=== PATIENT | female | born 1985 | race Caucasian/White ===

== ENCOUNTER → 2019-03-30 10:22 | Outpatient (CLI) | payer OTHER, SELFPAY ==
--- NOTE | 2019-03-30 10:29 | RAD_ITS ---
STUDY: X-RAY - LUMBAR SPINE REASON FOR EXAM: Female, 33 years old. Low back pain radiating to the left leg. TECHNIQUE: 5 view(s) of the lumbar spine were obtained. COMPARISON: None FINDINGS: Normal lumbar lordosis. There is no substantial scoliosis. There is a normal alignment of the vertebrae. Normal vertebral bodies and endplates. Normal disc space heights. There is no demonstrated fracture. There is no demonstrated spondylolysis of the pars interarticulares. The soft tissue structures are unremarkable. RAD/L/S Spine Min 4 Views IMPRESSION: Normal x-ray examination of the lumbar spine. Electronically Signed: Sandra Perez MD at 1:09 EST , Service support ,
== END ==
PROVIDERS: Family Provider Internal Medicine; PCP Internal Medicine; Referring Provider Nurse Practitioner; Visit Provider Nurse Practitioner
DX: M54.30 Sciatica, unspecified side (principal)
CPT/HCPCS: 72110

== ENCOUNTER 2019-05-28 16:00 | Outpatient (RCR) | payer OTHER, SELFPAY ==
--- NOTE | 2019-03-30 17:04 | HP.PTEVAL ---
Patient's Visit Information HUSAM BOWLING is a 33 year old F referred to Physical Therapy by TOI Alvarez with a diagnosis of SCIATICA. Date of Evaluation: 03/30/19 Physical Therapist: Cindy De Jesus PT, Cert MDT - Visit Plan Frequency: 2-3x /Week Duration: 4-6 Weeks Plan: MODALITIES NEEDED. POSTURE CORRECTION/STRENGTHENING, INSTRUCTION IN APPROPRIATE BODY MECHANICS AND ACTIVITY MODIFICATIONS. DLS STARTING WITH A NEUTRAL SPINE PROGRESSING ROM TOLERATED. ADITYA LE ROM, STRETCHING AND STRENGTHENING. HEP INSTRUCTION. 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 TODAY IS THE FIRST DAY OF WORK MISSED. WORKS TUE THROUGH TUESDAY. Disability: NO. Present symptoms: LOW BACK PAIN LEFT > RIGHT. ADITYA HIP PAIN. LEFT BUTTOCK PAIN, LEFT THIGH PAIN, LEFT CALF PAIN. WHOLE LEFT LEG FEELS NUMB TO THE TOES. Present since: ABOUT 6 MONTHS AGO. Pain Scale: WORST 9/10, LEAST 1/10. Currently: /10. Commenced as a result of: RELATES PAIN TO LIFTING 1 YEAR OLD. Symptoms at onset: LOW BACK PAIN. Worse: BENDING, STRAIGHTENING LEGS IN SITTING, SOMETIMES WALKING, SPORATIC, STAYING IN ONE POSITION, LIFTING, BUMPS DURING CAR RIDE. Better: LYING DOWN, FREQUENT CHANGE OF POSITION, STANDING UP AND NOT PUTTING ANY PRESSURE ON LLE. Disturbed sleep: YES. Previous history/Previous treatment: UNREMARKABLE. Coughing/sneezing/straining: NEGATIVE NOW. Gait: PAINFUL. Difficulty initiating urinatin: NO. Accidents: NO. Unexplained weight loss: NO. Imaging: BACK X-RAY TODAY: RESULTS PENDING. PMH: UNREMARKABLE. OTHER: SPORATICALLY HAS TRIED 10 MINUTE AB WORK OUT WITH CRUNCHES, KEAGLES, BICYCLES AND OBLIQUES - ABOUT 2 DAYS AFTER WAS REALLY SORE IN HIPS. CORE FELT A LITTLE STRONGER AND BACK PAIN WAS BETTER BUT THEN DID STRETCHES (PRONE PRESS UPS, CHILD POSE, SEATED TWISTING) AND FELT SHOOTINIG PAINS DOWN LEG LATER THAT DAY. THINKS SHE OVER-DID THE STRETCHING. STARTED STEROIDS TODAY. ALSO TAKING ALEVE. TORADOL SHOT TODAY TOO. - Objective Sitting/Standing Posture: POOR. DECREASED WT BEARING LEFT LE. PERIPHERALIZES PAIN TO STAND. Lordosis: REDUCED. Lateral shift: NO. Relevant shift: N/A. Active Correction of posture: WORSE. Other Observations: INDEP VERY SLOW AND ANTALGIC GAIT AND TRANSFERS. DECREASED LLE WEIGHT BEARING IN STANDING. LIMP ON LLE. Motor deficit: ADITYA LE'S 5/5 WITH MMT'ING EXCEPT RIGHT HIP 4/5 AND LEFT HIP 4-/5. Sensory deficit: NO. ROM deficit: ADITYA LE'S WFL EXCEPT LLE HS'S. Reflexes: 2/3 ADITYA LE'S. Dural Signs: POSITIVE LLE. Lumbar mvmt loss: flex - MOD TO GABRIELA. ext - GABRIELA. R SG - MOD. L SG - MOD. INCREASED LLE SX'S WITH LUMBAR ROM TESTING ALL PLANES IN STANDING BUT ESPECIALLY EXT AND LEFT SG. Core strength: POOR. Palpation: NO ACUTE TENDERNESS WITH PALPATION OF THE THORACIC OR LUMBAR SPINE. TENDER IN THE LEFT BUTTOCK AREA. - Goals Goal 1:: DECREASE C/O BACK AND LLE SX'S. Goal Time Frame: 4-6 Weeks Goal 2:: IMPROVE PERSONAL CARE, LIFTING, WALKING, SITTING, STANDING, SLEEP, SOCIAL LIFE, TRAVEL, AND HOMEMAKING/WORK FUNCTION. Goal Time Frame: 4-6 Weeks Goal 3:: INSTRUCT IN PROPHYLAXIS Goal Time Frame: 4-6 Weeks - Anticipated Interventions Patient/Client Instruction: Educate patient on: Condition, Plan of Care, Risk Factors, Benefits of Fitness Program For the Purpose of:: To improve self management Therapeutic Exercise to Include: Strength training, Body mechanics, Postural training, Flexibilty training, Dynamic Lumbar Stabilization Comment: POOL IS NOT COVERED For the Purpose of:: To decrease pain, To increase ROM, To improve muscle performance and motor function, To increase tolerance to activity/condition/position, To improve ability of physical actions for home/community/work/leisure Thank you for the opportunity to evaluate your patient. For Medicare and Medicare HMO plans, please review the plan of care and approve it. It will need to be FAXED BACK to us at [phone] for Medicare purposes. For Medicare only, by signing this I certify the plan of care. Please let me know if there are questions or concerns regarding this plan of care. Physician Signature: Date:
--- NOTE | 2019-05-29 13:48 | HP.PTDCSUM_ITS ---
HP - PT D/C Summary It has been my pleasure to treat HUSAM BOWLING under orders from Kimberly Batres, SHANTELLE-C, for the diagnosis of SCIATICA for a total of 19 visit(s). Discharge Date: Please see the following information for a summary of their discharge status. - Subjective Subjective: PATIENT REPORTS SHE HAS BEEN FEELING CLOSER TO 95% BETTER THE LAST FEW DAYS. STILL GETS SHOOTING SX'S DOWN LLE RANDOMLY. - Pain LOW BACK Pain Intensity (Out of 10): 0 THIGH Pain Intensity (Out of 10): 0 CALF Pain Intensity (Out of 10): 0 FOOT Pain Intensity (Out of 10): 0 - Overall Improvement % Improvement: 80 - Objective Objective/Function: PATIENT WAS SEEN TODAY FOR RE-ASSESSMENT OF PROGRESS TOWARD THE SET PT GOALS AND THE NEED FOR FURTHER PHYSICAL THERAPY VS READINESS FOR DISCHARGE. UPON EXAM TODAY PATIENT CONTINUES TO HAVE SOME LUMBAR MVMT LOSS: FLEX - MIN, EXT - MIN, RIGHT SG - MIN, LEFT SG - MIN. HER GAIT HAS NORMALIZED AND ADITYA LE STRENGTH IS 5/5. SHE HAS HAD 19 PHYSICAL THERPAPY VISITS AND IS INDEP WITH A HEP BUT HER LLE SX'S HAVE NOT COMPLETELY RESOLVED. THIS PT RECOMMENDS PH YSICIAN RE-CHECK DUE TO LE SX'S NOT COMPLETELY RESOLVED. PATIENT IS AGREEABLE. - Goals Goal 1:: DECREASE C/O BACK AND LLE SX'S. Goal 2:: IMPROVE PERSONAL CARE, LIFTING, WALKING, SITTING, STANDING, SLEEP, SOCIAL LIFE, TRAVEL, AND HOMEMAKING/WORK FUNCTION. Goal 3:: INSTRUCT IN PROPHYLAXIS - Plan Plan: D/C TO INDEP EX AND FOLLOW UP WITH DR. ROMERO. - D/C Information If there are questions or concerns regarding this patient's physical therapy, please feel free to call me at [phone]. Thank you for the referral of this patient. Sincerely, Cindy De Jesus, PT, Cert MDT
== END 2019-05-28 19:00 | disposition home or self-care (01) ==
LOC: PT 16:00
PROVIDERS: Family Provider Internal Medicine; PCP Internal Medicine; Referring Provider Nurse Practitioner; Visit Provider Nurse Practitioner
DX: M54.30 Sciatica, unspecified side (principal)
CPT/HCPCS: 97014; 97110; 97162; 97164; 97530; G0283

== ENCOUNTER 2024-02-13 09:37 | Observation (INO) | payer OTHER, SELFPAY ==
[2024-02-13] VITALS (7 sets, daily range): BP systolic 115–133; BP diastolic 65–86; PULSE 78–130; RESP 16–20; TEMP 36.7–37.2; O2SAT 97–100; BMI 30.5
--- NOTE | 2024-02-13 09:56 | EKG12_ITS ---
Test Reason : Blood Pressure : / mmHG Vent. Rate : 100 BPM Atrial Rate : 100 BPM P-R Int : 126 ms QRS Dur : 078 ms QT Int : 332 ms P-R-T Axes : 081 048 -05 degrees QTc Int : 428 ms Normal sinus rhythm Normal ECG Confirmed by MARISOL RENTERIA, LUIS FELIPE ([id number]), newspaper editor managing YAKOV SANTIAGO ([id number]) on 02/14/2024 8:44:30 AM Referred By: AMY Confirmed By:LUIS FELIPE DAMON MD
--- NOTE | 2024-02-13 10:21 | EX.ED.DYSGE1 ---
HPI History of Present Illness Chief Complaint: Abd Pain Narrative Narrative: Patient is a 38-year-old female with no known significant past medical history who presents to the emergency department with a chief complaint of abdominal pain. States that for about 3 days now she has noted that she had some right upper quadrant pain. 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 She had that things would get better however notes that she is unable to sleep at night secondary to the pain. She denies any previous abdominal surgeries denies any history of kidney stones. Patient denies any recent travel history. Denies any history of blood clots. States that she is on control. PFSH PFSH Home Medications ?Medication ?Instructions ?Recorded ?Last Taken ?Type L norgest/E estradiol-E estrad 1 tab PO DAILY 02/13/24 02/13/24 History 0.15 mg-30 mcg (84)/10 mcg(7) tabs,3mos multivitamin (Daily Multi-Vitamin 1 tab PO DAILY 02/13/24 02/13/24 History tablet) Allergy/AdvReac Type Severity Reaction Status Date / Time No Known Allergies Allergy Verified 02/13/24 09:41 Social History Smoking Status: Never smoker ROS ROS ED ROS Narrative Constitutional: Denies any fevers, chills, headaches, lightness, dizziness Eyes: Denies change in vision double vision blurry vision Cardiovascular: Denies chest pain or palpitations Respiratory: Denies coughing wheezing shortness of breath Abdomen: Complains of abdominal pain as noted above nausea denies vomiting diarrhea denies dark tarry stools : Denies any pain phonation, hematuria, polyuria Neurological: Denies any numbness, weakness, tingling Musculoskeletal: Denies back pain Skin: Denies rashes or lesions EXAM Physical Exam Narrative Exam Narrative: General: Patient lying in bed rest comfortably did not appear to be in acute distress Head: Atraumatic, normocephalic Eyes: PERRL bilateral, EOMI bilateral, no conjunctival injection noted Neck: Soft, supple, trachea midline Cardiovascular: Regular rate and rhythm no murmurs gallops rubs noted Respiratory: Clear to auscultation bilaterally no rales rhonchi or wheezes noted Abdomen: Soft, nondistended, nontender to palpation no rebound or guarding on exam, bowel sounds present x 4, negative Borges sign Extremities: +5/5 strength noted in the bilateral lower extremities, no pedal edema on exam Neurological: Patient following commands knew that she was at [facility] year is 2023 Skin: Warm, dry, intact Const Vital Signs: 02/13/24 09:38 02/13/24 11:37 Temperature 98.9 F Temperature Source Oral Pulse Rate 130 H 78 Respiratory Rate 18 18 Blood Pressure 133/86 H 115/65 Blood Pressure Mean 101 81 Pulse Ox 97 97 Oxygen Delivery Method Room Air MDM MDM MDM Narrative Medical decision making narrative: Patient is a 38-year-old female who presents to the emergency department chief complaint of right upper quadrant abdominal pain. On the differential diagnose includes but not limited to cholecystitis, choledocholithiasis, viral gastroenteritis, pancreatitis, urolithiasis. Once workup is obtained reviewed she will be reevaluated. Patient be given IV fluids. She does states that she does not anything for pain at this point time. Patient CBC reviewed and was significant for leukocytosis of 11,000, hemoglobin was 13.3, platelet count normal at 281. Patient sodium normal 138, potassium normal 3.5, creatinine normal at 0.94. Patient's AST and ALT were 30 and 58 respectively, total bilirubin normal at 0.70. Patient lipase normal at 30, urinalysis did not reveal any evidence of infection and test was negative. Patient CT abdomen pelvis with IV contrast was reviewed and was significant for a right posterior portal venous thrombosis in the posterior aspect of the right portal venous bifurcation extending to the right posterior hepatic lobe. At this point time we will discuss case with gastroenterology Dr. Martins. Discussed case with Dr. Martins and he states that the patient can be admitted here under the medicine service and be further evaluated at that point time. Called and discussed case with hospitalist Dr. Diaz who accept patient for admission. He is recommending Lovenox which was ordered. Patient was notified and significant other bedside with all question concerns answered bedside. Lab Data Labs: Laboratory Results - last 24 hr 02/13/24 02/13/24 10:18 10:35 WBC 11.9 H RBC 4.77 Hgb 13.3 Hct 41.3 MCV 86.6 MCH 27.9 MCHC 32.2 RDW Std Deviation 39.9 RDW Coeff of Vandana 12.9 Plt Count 281 MPV 9.6 Immature Gran % (Auto) 0.300 Neut % (Auto) 76.5 H Lymph % (Auto) 12.8 L Henderson % (Auto) 9.6 Eos % (Auto) 0.5 Baso % (Auto) 0.3 Absolute Neuts (auto) 9.1 H Absolute Lymphs (auto) 1.53 Nucleated RBC % 0 Sodium 138 Potassium 3.5 Chloride 108 H Carbon Dioxide 24.0 Anion Gap 6 BUN 6 L Creatinine 0.94 Estim Creat Clear Calc 90.85 Est GFR (MDRD) Af Amer 85 Est GFR (MDRD) Non-Af 70 BUN/Creatinine Ratio 6.4 L Glucose 115 H Calcium 10.1 Total Bilirubin 0.70 AST 30 ALT 58 H Alkaline Phosphatase 54 Total Protein 7.9 Albumin 3.3 Globulin 4.6 H Albumin/Globulin Ratio 0.7 L Lipase 30 Urine Color Straw Urine Clarity Clear Urine pH 7.0 Ur Specific [place] 1.005 Urine Protein Negative Urine Glucose (UA) Normal Urine Ketones Negative Urine Occult Blood 25 H Urine Nitrite Negative Urine Bilirubin Negative Urine Urobilinogen Normal Ur Leukocyte Esterase 25 H Urine RBC 0 SEEN Urine WBC 0 SEEN Ur Squamous Epith Cells 0-5 SEEN Urine Bacteria 0 SEEN Urine Mucus 0 SEEN Urine Test Negative Radiography Diagnostic Testing: Clinical Impression(s) from Imaging Studies Abdomen/Pelvis CT 02/13/24 10:48 IMPRESSION: Right posterior portal venous thrombosis in the posterior aspect of the right portal venous bifurcation extending to the right posterior hepatic lobe. Electronically Signed: Gomez Penaloza MD at 12:12 EDT Reading Location ID and State: [facility] / [place] , Service support , ADDENDUM: 02/13/24 1226 IMPRESSION: Right posterior portal venous thrombosis in the posterior aspect of the right portal venous bifurcation extending to the right posterior hepatic lobe. N.B. : The above Results were Read Back by Gomez Penaloza MD to Terrance Amaral DO, and understanding confirmed on 02/13/2024 12:19:59 (ET). Electronically Signed: Gomez Penaloza MD at 12:12 EDT , Discharge Plan Triage Chief Complaint: Abd Pain ED Provider: Terrance Amaral Dx/Rx/DC Orders Clinical Impression: Portal vein thrombosis Prescriptions: No Action L norgest/e.estradiol-e.estrad 0.15 mg-30 mcg (84)/10 mcg (7) tablets,dose pack,3 month 1 tab PO DAILY multivitamin [Daily Multi-Vitamin] Tablet 1 tab PO DAILY Primary Care Provider: Ann Marie Dietrich Referrals: Ann Marie Dietrich DO [Primary Care Provider] - Print Language: Maltese
[2024-02-13] MEDS: 0.9% Normal Saline (1000mL) 1,000 ML 999 ML IV (10:23)
[2024-02-13 10:34] LABS: Bacteria 0 SEEN /hpf (None Seen); Color, Urine Straw (Yellow); Glucose, Dipstick Normal (Normal); Ketone-Dipstick Negative (Negative); Leukocyte Esterase-Dipstick 25 /ul (Negative); Mucous, Urine 0 SEEN /hpf (<or=2+); Nitrite-Dipstick Negative (Negative); Occult Blood-Urine 25 /ul (Negative); Protein-Dipstick Negative (Negative); Red Blood Cells-Urine 0 SEEN /hpf (0-5); Specific Gravity, Urine 1.005 (1.002-1.030); Urine Bilirubin Dipstick Negative (Negative); Urine Clarity Clear (Clear); Urine Urobilinogen Normal (Normal); White Blood Cells 0 SEEN /hpf (0-5)
[2024-02-13 10:41] LABS: Absolute Lymphocyte Count 1.53 X10^3/uL (0.83-4.51); Absolute Neutrophil Count 9.1 X10^3/uL (2.0-7.7); Basophil# 0.04 X10^3/uL; Basophil% 0.3 % (0-1); Eosinophil# 0.06 X10^3/uL; Eosinophils% 0.5 % (0-5); Hematocrit 41.3 % (37-47); Hemoglobin 13.3 g/dL (12.0-15.0); Lymphocyte # 1.53 X10^3/ul (0.83-4.51); Lymphocyte % 12.8 % (19-41); Mean Corp Hgb Conc 32.2 g/dL (32-36); Mean Corpuscular Hgb 27.9 pg (27.0-32.0); Mean Corpuscular Volume 86.6 fL (81-99); Mean Platelet Vol. 9.6 fl (6.2-12.0); Monocyte# 1.14 X10^3/uL; Monocyte% 9.6 % (0-10); NRBC Flagged by Analyzer 0 % (0-5); Neutrophil % 76.5 % (47-70); Platelet Count 281 K/mm3 (150-450); RBC Distribution Width CV 12.9 % (11.6-14.6); RBC Distribution Width SD 39.9 fl (35.1-43.9); Red Blood Count 4.77 M/mm3 (4.2-5.4); White Blood Count 11.9 K/mm3 (4.4-11.0)
[2024-02-13 10:46] LABS: Internal QC Validated? YES +Cl - CLEAR BKGD; Pregnancy, Urine Negative Negative; Squamous Epithelial Cells - UA 0-5 SEEN /hpf (5-10)
--- NOTE | 2024-02-13 10:48 | CT_ITS ---
We are attempting to reach an attending provider to discuss findings. An addendum with communication details will be sent when the communication is complete. EXAM: CT ABDOMEN AND PELVIS WITH INTRAVENOUS CONTRAST CLINICAL INDICATION: RUQ pain TECHNIQUE: Helically acquired images were obtained of the abdomen and pelvis with intravenous contrast. This CT exam was performed using one or more of the following dose reduction techniques: automated exposure control, adjustment of the mA and/or kV according to patient size, and/or use of iterative reconstruction technique. CONTRAST: IV 100mL Isovue-300 RADIATION DOSE: CTDIvol = 13.66 mGy, DLP = 1015.36 mGy-cm COMPARISON: No relevant prior studies available. FINDINGS: LOWER THORAX: Unremarkable. Lung bases are clear. No cardiomegaly. No significant pericardial effusion. ABDOMEN: LIVER: Unremarkable. Homogeneous. No focal mass. GALLBLADDER AND BILE DUCTS: Unremarkable. No calcified gallstones. No gallbladder distention or wall edema. No intra- or extrahepatic biliary ductal dilation. PANCREAS: Unremarkable. No focal cystic or solid mass. SPLEEN: Unremarkable. Normal size without focal cystic or solid mass. ADRENALS: Unremarkable. No nodules. KIDNEYS AND URETERS: Unremarkable. Normal renal size and position. No hydronephrosis. STOMACH AND BOWEL: Unremarkable. No stomach or bowel distention. No focal inflammatory change. PELVIS: APPENDIX: Normal. BLADDER: Unremarkable. REPRODUCTIVE: Unremarkable as visualized. No mass. ABDOMEN and PELVIS: INTRAPERITONEAL SPACE: Unremarkable. No ascites or other fluid collection. No free air. BONES/JOINTS: Unremarkable. No suspicious lytic or blastic abnormality. SOFT TISSUES: Unremarkable. No discrete abdominal or pelvic wall hernia. VASCULATURE: Positive for intraluminal thrombus in the posterior aspect of the right main portal venous bifurcation extending to the right posterior hepatic lobe. No thrombus in the main portal vein and left portal vein. No thrombosis of the splenoportal confluence and SMV. No thrombus in the hepatic veins. Abdominal aorta is non-dilated. LYMPH NODES: Unremarkable. No enlarged lymph nodes. CT/Abdomen/Pelvis W IV Cont ONLY IMPRESSION: Right posterior portal venous thrombosis in the posterior aspect of the right portal venous bifurcation extending to the right posterior hepatic lobe. Electronically Signed: Gomez Penaloza MD at 12:12 EDT ,
[2024-02-13 11:01] LABS: ALB/GLOB Ratio 0.7 RATIO (0.9-2.4); AST(SGOT) 30 U/L (15-37); Alanine Aminotransfer ALT/SGPT 58 U/L (13-56); Albumin, Serum 3.3 g/dL (3.2-5.0); Alkaline Phosphatase 54 U/L (45-117); Anion Gap 6 (5-15); BUN 6 mg/dL (7-18); BUN/Creat Ratio 6.4 RATIO (10-20); Calcium,Total 10.1 mg/dL (8.5-10.1); Chloride 108 mmol/L (98-107); Creatinine, Serum 0.94 mg/dL (0.55-1.02); EST Glomerular Filtration Rate 70 mL/min (>60); Est Glom Filt Rate - Afr Amer 85 mL/min (>60); Estimated Creatinine Clearance 90.85 ml/min; Globulin 4.6 g/dL (2.2-4.2); Glucose 115 mg/dL (74-106); Lipase 30 U/L (13-75); Potassium 3.5 mmol/L (3.5-5.1); Protein, Total 7.9 g/dL (6.4-8.2); Sodium Level 138 mmol/L (136-145)
--- NOTE | 2024-02-13 13:24 | HP.PCM.HOS_ITS ---
HPI - General General Date of Admission: 02/13/24 Date of Service: 02/13/24 Chief Complaint: RUQ abdominal pain HPI Narrative HUSAM BOWLING, is a 38 F who presented to [facility] ED on 02/13/2024 with 3-day history of right upper quadrant abdominal pain. CT abdomen pelvis was positive for a portal vein thrombosis. Scan showed an intraluminal thrombus in the posterior aspect of the right main portal venous bifurcation extending to the right posterior hepatic lobe. There otherwise was no liver disease or gallbladder disease noted on the scan and no other concerning findings. Patient started combo control pills about 3 months ago. She was given a dose of subcu Lovenox in the ED and given her ongoing pain, hospitalist was contacted for admission. I saw the patient at bedside in the ED, was present. Patient was sitting up comfortably in bed, conversing normally, no acute distress. She stated that her pain is fairly well-controlled at rest but is worse with movement. She does report some pain to palpation. She has not been eating or drinking as much over the past few days due to the pain. Patient has no prior history of any blood clots. She has no significant family history of blood clots. She is otherwise healthy and not on any other medications. She is not a smoker. She has no other acute concerns at this time. [facility] Medical History Non-smoker Home Medications ?Medication ?Instructions ?Recorded ?Last Taken ?Type L norgest/E estradiol-E estrad 1 tab PO DAILY 02/13/24 02/13/24 History 0.15 mg-30 mcg (84)/10 mcg(7) tabs,3mos multivitamin (Daily Multi-Vitamin 1 tab PO DAILY 02/13/24 02/13/24 History tablet) Allergy/AdvReac Type Severity Reaction Status Date / Time No Known Allergies Allergy Verified 02/13/24 09:41 Social History Smoking Status: Never smoker ROS Constitutional Constitutional: Denies chills, fatigue, fever(s) or weakness Cardiovascular Cardiovascular: Denies chest pain Respiratory/Chest Respiratory/Chest: Denies shortness of breath at rest or shortness of breath with exertion Gastrointestinal Gastrointestinal: Reports abdominal pain and nausea; Denies constipation, diarrhea or vomiting Musculoskeletal Musculoskeletal: Denies back pain Vital Signs Vital Signs Vital Signs: 02/13/24 09:38 02/13/24 11:37 Temperature 98.9 F Temperature Source Oral Pulse Rate 130 H 78 Respiratory Rate 18 18 Blood Pressure 133/86 H 115/65 Blood Pressure Mean 101 81 Pulse Ox 97 97 Oxygen Delivery Method Room Air Weight Weight: 88.451 kg Body Mass Index (BMI) 30.5 Physical Exam Const alert, oriented x3, no apparent distress, healthy appearing and well nourished Constitutional Narrative: Pleasant middle-age female, obese, sitting up comfortably in bed, conversing normally, in no acute distress. General Appearance: cooperative, comfortable, well kempt and well developed HEENT normocephalic, head/scalp atraumatic, hearing grossly normal bilaterally, nasal mucous membranes and turbinates normal and moist oral mucous membranes Eyes PERRL, EOMs intact bilaterally and conjunctivae normal Neck full ROM Chest inspection of chest normal Resp normal respiratory effort, normal air movement, no use of accessory muscles and clear to auscultation bilaterally Cardio regular rate, regular rhythm, no murmurs and peripheral pulses 2+ throughout GI GI Narrative: Mild tenderness to palpation noted in the right upper quadrant wrapping around to the right lateral abdominal area. Abdomen otherwise soft and nondistended. Normal bowel sounds. Back/Spine normal ROM Extremity normal to inspection, full ROM and no pedal edema Skin no rashes or lesions noted Neuro moves all extremities and no focal motor deficits Speech: speech normal Psych mental status grossly normal Results Lab / Micro Data 02/13/24 10:35 02/13/24 10:35 Labs: Laboratory Results - last 24 hr 02/13/24 10:18: Urine Color Straw, Urine Clarity Clear, Urine pH 7.0, Ur Specific [place] 1.005, Urine Protein Negative, Urine Glucose (UA) Normal, Urine Ketones Negative, Urine Occult Blood 25 H, Urine Nitrite Negative, Urine Bilirubin Negative, Urine Urobilinogen Normal, Ur Leukocyte Esterase 25 H, Urine RBC 0 SEEN, Urine WBC 0 SEEN, Ur Squamous Epith Cells 0-5 SEEN, Urine Bacteria 0 SEEN, Urine Mucus 0 SEEN, Urine Test Negative 02/13/24 10:35: WBC 11.9 H, RBC 4.77, Hgb 13.3, Hct 41.3, MCV 86.6, MCH 27.9, MCHC 32.2, RDW Std Deviation 39.9, RDW Coeff of Vandana 12.9, Plt Count 281, MPV 9.6, Immature Gran % (Auto) 0.300, Neut % (Auto) 76.5 H, Lymph % (Auto) 12.8 L, Pike % (Auto) 9.6, Eos % (Auto) 0.5, Baso % (Auto) 0.3, Absolute Neuts (auto) 9.1 H, Absolute Lymphs (auto) 1.53, Nucleated RBC % 0, Sodium 138, Potassium 3.5, Chloride 108 H, Carbon Dioxide 24.0, Anion Gap 6, BUN 6 L, Creatinine 0.94, Estim Creat Clear Calc 90.85, Est GFR (MDRD) Af Amer 85, Est GFR (MDRD) Non-Af 70, BUN/Creatinine Ratio 6.4 L, Glucose 115 H, Calcium 10.1, Total Bilirubin 0.70, AST 30, ALT 58 H, Alkaline Phosphatase 54, Total Protein 7.9, Albumin 3.3, Globulin 4.6 H, Albumin/Globulin Ratio 0.7 L, Lipase 30 Imaging Radiology Impression Abdomen/Pelvis CT 02/13/24 10:48 IMPRESSION: Right posterior portal venous thrombosis in the posterior aspect of the right portal venous bifurcation extending to the right posterior hepatic lobe. Electronically Signed: Gomez Penaloza MD at 12:12 EDT , ADDENDUM: 02/13/24 1226 IMPRESSION: Right posterior portal venous thrombosis in the posterior aspect of the right portal venous bifurcation extending to the right posterior hepatic lobe. N.B. : The above Results were Read Back by Gomez Penaloza MD to Terrance Amaral DO, and understanding confirmed on 02/13/2024 12:19:59 (ET). Electronically Signed: Gomez Penaloza MD at 12:12 EDT , Assessment & Plan Assessment/Plan (1) Portal vein thrombosis: PLAN: Plan Patient is a 38-year-old female who presented to [facility] ED on 02/13/2024 with 3-day history of right upper quadrant abdominal pain. 1. Portal vein thrombosis ? Admit under observation status to [facility]. GI consulted. Recently started combo control is the clear trigger for clotting for this patient. No liver disease or other intermittent abdominal pathology noted on CT scan. No history of prior clots and no family history of clotting disorder. Will treat with therapeutic Lovenox for now. If patient's pain is improved by tomorrow, should be okay to transition to a DOAC in preparation for discharge. Will need 6 months of anticoagulation on discharge. Will defer to GI on if further imaging or lab workup is needed. Can also consider outpatient hematology referral for anticoagulation workup if needed. 2. control ? Patient started estrogen-progesterone combo pill 3 months prior to this admission for perimenopausal symptoms. Follows with Dr. Gomez with [facility]. 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 3. Obesity ? BMI 30 on admit. Encouraged lifestyle modifications. Complicates hospital course, care and prognosis. DVT prophylaxis: Not indicated, on therapeutic Lovenox CODE STATUS: Full code, verified Expected disposition: Home, 1 to 2 days Total clinical time spent by myself addressing the patient's medical issues, reviewing all the data, and collaborating with patient's care team: 55 minutes. Charges/Coding Visit Charges Inpatient E&M: 98755 Init Hosp L2
[2024-02-13] MEDS: Enoxaparin 100 MG/ML Syringe 90 MG SC ×2 (14:24→21:52)
--- NOTE | 2024-02-13 15:06 | CASEMGMT ---
Care Management Face to Face with patient for initial transition planning/care coordination assessment.? This speech writer introduced self and role at [facility]. Patient sitting in bed , alert and oriented. Patient in room and participated in assessment with patient consent.? Patient willing to participate in assessment and is able to answer all questions appropriately.? Care providers, pharmacy, and demographics verified. Admitting Diagnosis: ?rt upper abd pain Other diagnosis history: n/a PCP: ?Dr. Dietrich Specialists: n/a Preferred Pharmacy: ?[facility] in [place] Insurance: ?[employer] Prescription Benefit:? [employer] Living Will/HPOA: ?Does not have any advanced directives at this time, SW educated that we could assist in completing while she was at the hospital.? Patient declined at this time but did want paperwork to review.? Information given on Living Will and Health Care Power of Motion Picture Equipment Supervisor. LNOK: ?Cj Mosesamer, Living Arrangements: ??Patient lives at home with and two children.? Home has two stairs to enter, multiple steps upstairs.? Master suite on first floor. Transportation: ?Both patient and drive and have reliable transportation. DME/HHC: ?No preferences for DME or HHC at this time.? Educated should services be necessary that SW/CM staff can assist in providing choices.? Patient goals: Patient wishes to discharge home, denies need for home health or DME services at this time.? Patient states he has no further needs or concerns at this time. CM to follow for discharge planning needs that may arise. Ammy Hunt, MARKETING PROPOSAL SPECIALIST, TIME BUYER
--- NOTE | 2024-02-13 18:45 | CON.PCM.GI_ITS ---
HPI Consult Data Date of Consult: 02/13/24 HPI Narrative Reason for Consultation: Portal vein thrombosis HPI Narrative: HUSAM BOWLING, is a 38 F who presented to [facility] ED on 02/13/2024 with 3-day history of right upper quadrant abdominal pain. 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 She was recently started on control because she was perimenopausal. She had no other symptoms other than abdominal pain that caused her to come to the hospital. CT abdomen pelvis was positive for a portal vein thrombosis. Scan showed an intraluminal thrombus in the posterior aspect of the right main portal venous bifurcation extending to the right posterior hepatic lobe. There otherwise was no liver disease or gallbladder disease noted on the scan and no other concerning findings. Patient started combo control pills about 3 months ago. She was given a dose of Lovenox in the ED and given her ongoing pain, hospitalist was contacted for admission. She is not a smokerAnd she has no family history of blood clotting disorders. She has no other acute concerns at this time. [facility] Medical History Non-smoker Home Medications ?Medication ?Instructions ?Recorded ?Last Taken ?Type L norgest/E estradiol-E estrad 1 tab PO DAILY 02/13/24 02/13/24 History 0.15 mg-30 mcg (84)/10 mcg(7) tabs,3mos multivitamin (Daily Multi-Vitamin 1 tab PO DAILY 02/13/24 02/13/24 History tablet) Allergy/AdvReac Type Severity Reaction Status Date / Time No Known Allergies Allergy Verified 02/13/24 09:41 Social History Smoking Status: Never smoker ROS Constitutional Constitutional: Denies chills, fatigue, fever(s) or weakness Cardiovascular Cardiovascular: Denies chest pain Respiratory/Chest Respiratory/Chest: Denies shortness of breath at rest or shortness of breath with exertion Gastrointestinal Gastrointestinal: Reports abdominal pain and nausea; Denies constipation, diarrhea or vomiting Musculoskeletal Musculoskeletal: Denies back pain Physical Exam Const alert, oriented x3, no apparent distress, healthy appearing and well nourished General Appearance: cooperative, comfortable, well kempt and well developed HEENT normocephalic, head/scalp atraumatic, hearing grossly normal bilaterally, nasal mucous membranes and turbinates normal and moist oral mucous membranes Eyes PERRL, EOMs intact bilaterally and conjunctivae normal Neck full ROM Chest inspection of chest normal Resp normal respiratory effort, normal air movement, no use of accessory muscles and clear to auscultation bilaterally Cardio regular rate, regular rhythm, no murmurs and peripheral pulses 2+ throughout GI GI Narrative: Mild tenderness to palpation noted in the right upper quadrant wrapping around to the right lateral abdominal area. Abdomen otherwise soft and nondistended. Normal bowel sounds. Back/Spine normal ROM Extremity normal to inspection, full ROM and no pedal edema Skin no rashes or lesions noted Neuro moves all extremities and no focal motor deficits Speech: speech normal Psych mental status grossly normal Lab / Micro Data 02/13/24 10:35 02/13/24 10:35 Labs: Laboratory Results - last 24 hr 02/13/24 10:18: Urine Color Straw, Urine Clarity Clear, Urine pH 7.0, Ur Specific [place] 1.005, Urine Protein Negative, Urine Glucose (UA) Normal, Urine Ketones Negative, Urine Occult Blood 25 H, Urine Nitrite Negative, Urine Bilirubin Negative, Urine Urobilinogen Normal, Ur Leukocyte Esterase 25 H, Urine RBC 0 SEEN, Urine WBC 0 SEEN, Ur Squamous Epith Cells 0-5 SEEN, Urine Bacteria 0 SEEN, Urine Mucus 0 SEEN, Urine Test Negative 02/13/24 10:35: WBC 11.9 H, RBC 4.77, Hgb 13.3, Hct 41.3, MCV 86.6, MCH 27.9, MCHC 32.2, RDW Std Deviation 39.9, RDW Coeff of Vandana 12.9, Plt Count 281, MPV 9.6, Immature Gran % (Auto) 0.300, Neut % (Auto) 76.5 H, Lymph % (Auto) 12.8 L, [place] % (Auto) 9.6, Eos % (Auto) 0.5, Baso % (Auto) 0.3, Absolute Neuts (auto) 9.1 H, Absolute Lymphs (auto) 1.53, Nucleated RBC % 0, Sodium 138, Potassium 3.5, Chloride 108 H, Carbon Dioxide 24.0, Anion Gap 6, BUN 6 L, Creatinine 0.94, Estim Creat Clear Calc 90.85, Est GFR (MDRD) Af Amer 85, Est GFR (MDRD) Non-Af 70, BUN/Creatinine Ratio 6.4 L, Glucose 115 H, Calcium 10.1, Total Bilirubin 0.70, AST 30, ALT 58 H, Alkaline Phosphatase 54, Total Protein 7.9, Albumin 3.3, Globulin 4.6 H, Albumin/Globulin Ratio 0.7 L, Lipase 30 Imaging Radiology Impression Abdomen/Pelvis CT 02/13/24 10:48 IMPRESSION: Right posterior portal venous thrombosis in the posterior aspect of the right portal venous bifurcation extending to the right posterior hepatic lobe. Electronically Signed: Gomez Penaloza MD at 12:12 EDT , ADDENDUM: 02/13/24 1226 IMPRESSION: Right posterior portal venous thrombosis in the posterior aspect of the right portal venous bifurcation extending to the right posterior hepatic lobe. N.B. : The above Results were Read Back by Gomez Penaloza MD to Terrance Amaral DO, and understanding confirmed on 02/13/2024 12:19:59 (ET). Electronically Signed: Gomez Penaloza MD at 12:12 EDT , Assessment & Plan Assessment/Plan (1) Portal vein thrombosis: PLAN: Plan Patient is a 38-year-old female who presented With abdominal pain and discovered to have acute portal vein thrombosis. There is no sign of liver compromise or splenomegaly. There is no sign of chronicity such as recannulization. She has no history of cirrhosis. She does have a history of spontaneous and history of See's palsy. Her most likely etiology is control being that it was primary estrogen based. She will need biochemical workup for hypercoagulable disorder and vasculitis. Some of the studies particularly to vitamin K dependent factors can be off but I think it is good to have a baseline and then repeat the labs after she is off of anticoagulation. She is okay with this plan. Charges/Coding Visit Charges Inpatient E&M: 00173 Init Hosp L3
[2024-02-13 19:24] LABS: Erythrocyte Sedimentation Rate 29 mm/hr (0-30)
[2024-02-13 19:42] LABS: LDH 164 U/L (84-246)
[2024-02-13] MEDS: Acetaminophen 325 MG Tablet 650 MG PO (20:15)
[2024-02-13] MEDS: 0.9% Saline Lock 10 ML Syringe IV (20:17)
[2024-02-14 02:00] VITALS: BP 124/78; PULSE 88; RESP 18; TEMP 36.6; O2SAT 100
[2024-02-14 06:30] LABS: Hematocrit 40.6 % (37-47); Mean Corpuscular Volume 87.3 fL (81-99); Mean Platelet Vol. 9.7 fl (6.2-12.0); Platelet Count 299 K/mm3 (150-450); RBC Distribution Width CV 13.1 % (11.6-14.6); RBC Distribution Width SD 41.4 fl (35.1-43.9); Red Blood Count 4.65 M/mm3 (4.2-5.4); White Blood Count 9.8 K/mm3 (4.4-11.0)
[2024-02-14] MEDS: Acetaminophen 325 MG Tablet 650 MG PO (06:43)
[2024-02-14 06:51] LABS: ALB/GLOB Ratio 0.7 RATIO (0.9-2.4); AST(SGOT) 36 U/L (15-37); Alanine Aminotransfer ALT/SGPT 61 U/L (13-56); Albumin, Serum 3.3 g/dL (3.2-5.0); Alkaline Phosphatase 54 U/L (45-117); Anion Gap 7 (5-15); BUN 6 mg/dL (7-18); BUN/Creat Ratio 7.2 RATIO (10-20); Calcium,Total 9.6 mg/dL (8.5-10.1); Chloride 106 mmol/L (98-107); Creatinine, Serum 0.84 mg/dL (0.55-1.02); EST Glomerular Filtration Rate 80 mL/min (>60); Est Glom Filt Rate - Afr Amer 96 mL/min (>60); Estimated Creatinine Clearance 101.72 ml/min; Globulin 4.6 g/dL (2.2-4.2); Glucose 154 mg/dL (74-106); Potassium 3.4 mmol/L (3.5-5.1); Protein, Total 7.9 g/dL (6.4-8.2); Sodium Level 136 mmol/L (136-145)
[2024-02-14 08:00] VITALS: BP 122/73; PULSE 75; RESP 16; TEMP 36.9; O2SAT 98
--- NOTE | 2024-02-14 09:27 | DCINST_ITS ---
Discharge Instructions Diet Discharge Diet: No restrictions Activity Discharge Activity: Return to Normal Activity Weight Bearing Status: Weight bearing as tolerated Dressing / Incision Call your doctor if you observe: Fever of 101 or Higher, Coldness, Increased Pain, Numbness or Tingling, Change in Color, Inability to urinate, Inability to have a bowel movement, Shortness of breath, Dizziness, Fainting spells, Swelling in the ankles, Chest pain, Prolonged hiccupping, Increased palpitations (irregular heartbeat) and Calf discomfort Follow Up Care When: IN 2 WEEKS Test Results: Test results from this visit will be discussed in further detail at your follow- up appointment, if applicable. Discharge Plan Admission Admit Date/Time: 02/13/24 13:28 Primary Reason for Your Visit: Portal vein thrombosis Attending Provider: Jarred Hebert Primary Care Provider: Ann Marie Dietrich Consulting Providers: Sunil Martins; Aaron Diaz Instructions Additional Instructions / Restrictions: Duration: Total of 6 months of Eliquis treatment. Will need to liver ultrasound with color duplex to see resolution of portal vein thrombosis after 6 months and follow-up with PCP. Discharge Orders/Prescriptions Prescriptions: New Eliquis DVT-PE Treat 30D Start 5 mg (74 tabs) tablets,dose pack 5 mg PO BID Qty: 74 0RF Rx Instructions: 10 mg twice daily for 1 week till 02/20/2024 then 5 mg twice daily to continue for total of 6 months Continued multivitamin [Daily Multi-Vitamin] Tablet 1 tab PO DAILY Discontinued L norgest/e.estradiol-e.estrad 0.15 mg-30 mcg (84)/10 mcg (7) tablets,dose pack,3 month 1 tab PO DAILY Referrals / Follow Up: Ann Marie Dietrich DO [Primary Care Provider] - Greg Johansen MD [Med Staff - Active Staff] - See Referral Note (Follow-up after 6 months after completion of Eliquis) Disposition Disposition (needs filled in before D/C Order can be placed): Home, Self Care
--- NOTE | 2024-02-14 09:41 | PCM.DC.SUM ---
Providers Date of Admission: 02/13/24 Date of Discharge: 02/14/24 Primary Care Physician: Dr. Ann Marie Dietrich, Consultations 02/13/24 15:18 Consult: Gastroenterology Routine Consulting Provider: LakshmiSunil Reason for Consult: new portal vein thrombosis EMERGENT Consult: No MD Notified: Yes Date Notified: 02/13/24 Time Notified: 15:51 Method of Notification: Text Reason For Visit: PORTAL VEIN THROMBOSIS W/ ABDOMINAL PAIN Diagnosis Discharge Diagnosis (1) Portal vein thrombosis: Status: Acute Code(s): I81 - Portal vein thrombosis Plan This is a 38-year-old female was admitted with 3 days of right upper quadrant abdominal pain progressively worsening. CT abdomen pelvis done which showed portal vein thrombosis. It is reported as intraluminal thrombus in posterior aspect of right main portal venous bifurcation extending to the right posterior hepatic lobe. No other liver disease or gallbladder disease. Patient on combination hormone replacement treatment for perimenopause symptoms 3 months ago. Patient is strictly told she is not candidate for hormonal replacement therapy. Hormone replacement therapy is high risk for thromboembolic disease therefore she has reversible/provoked cause for PCT. She denies family or hereditary thromboembolic disease. Diagnosis: Portal vein thrombosis, provoked from hormone replacement 3 Patient was started on Lovenox 1 mg/kg body weight. This was changed to apixaban on DVT dose, 10 mg twice daily for 1 week and then 5 mg twice daily to continue for 6 months. She will need liver ultrasound with color duplex to see degeneration of portal vein thrombosis. Follow-up with student success coach Dr. Johansen after completion of apixaban. Discharge medication reconciliation done. Discharge follow-up instructions completed. Discharge process discussed with the patient and all questions were answered to patient's satisfaction. Follow with PCP in 1 to 2 weeks Total time spent, exact 35 minutes on discharge meds reconciliation, examination, coordination of care with nurses and ancillary staff, review of imaging and blood test and discussion with the patient on follow-up instructions. Clinical Impression(s) from Imaging Studies Abdomen/Pelvis CT 02/13/24 10:48 IMPRESSION: Right posterior portal venous thrombosis in the posterior aspect of the right portal venous bifurcation extending to the right posterior hepatic lobe. Electronically Signed: Gomez Penaloza MD at 12:12 EDT , Medications at Discharge Home Medications multivitamin (Daily Multi-Vitamin tablet) 1 tab PO DAILY 02/13/24 apixaban 5 mg (74 tabs) tablets in a dose pack (Eliquis DVT-PE Treat 30D Start) 5 mg PO BID #74 tabs 02/14/24 Physical Exam Narrative Seen and examined Patient had abdominal pain mainly right upper quadrant for 3 days. It is almost resolved. Physical exam General: Alert, Oriented x3, Cooperative HEENT: Atraumatic, PERRLA, EOMI, Normocephalic Oral: No Gingival or Mucosal Lesions/ Ulcerations Neck: Supple, No JVD, Negative Carotid Bruits Chest wall/Lungs: Air entry diminished in bilateral lung bases. No crepitation/rhonchi Cardiovascular: Regular rate, Regular Rhythm, Normal S1, Normal S2, No M/G/R Abdomen: Bowel Sounds Present, Soft, Non Tender, Non-Distended. No Palmaz : No dysuria. No renal angle tenderness. No suprapubic tenderness. Extremities: No edema, Capillary Refill Less than 3 Seconds Skin: No rashes, No breakdown Musculoskeletal: No Tenderness to Palpation of Joints or Extremities. No unilateral leg swelling. Neurological: Cranial nerves II-XII grossly intact, DTR 2+/4. No acute focal neurological deficit. Psych/Mental Status: Normal Affect, Appropriate. Weight / BMI Weight Weight: 195 lb 3.2 oz Body Mass Index (BMI) 30.5 ABG / Lab / Microbiology Data 02/14/24 05:52 02/14/24 05:52 Laboratory: Laboratory Results - last 24 hr 02/13/24 10:18: Urine Color Straw, Urine Clarity Clear, Urine pH 7.0, Ur Specific [place] 1.005, Urine Protein Negative, Urine Glucose (UA) Normal, Urine Ketones Negative, Urine Occult Blood 25 H, Urine Nitrite Negative, Urine Bilirubin Negative, Urine Urobilinogen Normal, Ur Leukocyte Esterase 25 H, Urine RBC 0 SEEN, Urine WBC 0 SEEN, Ur Squamous Epith Cells 0-5 SEEN, Urine Bacteria 0 SEEN, Urine Mucus 0 SEEN, Urine Test Negative 02/13/24 10:35: WBC 11.9 H, RBC 4.77, Hgb 13.3, Hct 41.3, MCV 86.6, MCH 27.9, MCHC 32.2, RDW Std Deviation 39.9, RDW Coeff of Vandana 12.9, Plt Count 281, MPV 9.6, Immature Gran % (Auto) 0.300, Neut % (Auto) 76.5 H, Lymph % (Auto) 12.8 L, [place] % (Auto) 9.6, Eos % (Auto) 0.5, Baso % (Auto) 0.3, Absolute Neuts (auto) 9.1 H, Absolute Lymphs (auto) 1.53, Nucleated RBC % 0, ESR 29, Sodium 138, Potassium 3.5, Chloride 108 H, Carbon Dioxide 24.0, Anion Gap 6, BUN 6 L, Creatinine 0.94, Estim Creat Clear Calc 90.85, Est GFR (MDRD) Af Amer 85, Est GFR (MDRD) Non-Af 70, BUN/Creatinine Ratio 6.4 L, Glucose 115 H, Calcium 10.1, Total Bilirubin 0.70, AST 30, ALT 58 H, Alkaline Phosphatase 54, Lactate Dehydrogenase 164, C-React Prot Ext Range 76.20 H, Total Protein 7.9, Albumin 3.3, Globulin 4.6 H, Albumin/Globulin Ratio 0.7 L, Lipase 30 02/14/24 05:52: WBC 9.8, RBC 4.65, Hgb 13.0, Hct 40.6, MCV 87.3, MCH 28.0, MCHC 32.0, RDW Std Deviation 41.4, RDW Coeff of Vandana 13.1, Plt Count 299, MPV 9.7, Sodium 136, Potassium 3.4 L, Chloride 106, Carbon Dioxide 23.0, Anion Gap 7, BUN 6 L, Creatinine 0.84, Estim Creat Clear Calc 101.72, Est GFR (MDRD) Af Amer 96, Est GFR (MDRD) Non-Af 80, BUN/Creatinine Ratio 7.2 L, Glucose 154 H, Calcium 9.6, Total Bilirubin 0.70, AST 36, ALT 61 H, Alkaline Phosphatase 54, Total Protein 7.9, Albumin 3.3, Globulin 4.6 H, Albumin/Globulin Ratio 0.7 L Radiography Diagnostic Testing: Radiology Impression Abdomen/Pelvis CT 02/13/24 10:48 IMPRESSION: Right posterior portal venous thrombosis in the posterior aspect of the right portal venous bifurcation extending to the right posterior hepatic lobe. Electronically Signed: Gomez Penaloza MD at 12:12 EDT , ADDENDUM: 02/13/24 1226 IMPRESSION: Right posterior portal venous thrombosis in the posterior aspect of the right portal venous bifurcation extending to the right posterior hepatic lobe. N.B. : The above Results were Read Back by Gomez Penaloza MD to Terrance Amaral DO, and understanding confirmed on 02/13/2024 12:19:59 (ET). Electronically Signed: Gomez Penaloza MD at 12:12 EDT , D/C Instructions Discharge Diet: No restrictions Weight Bearing Status: Weight bearing as tolerated Call your doctor if you observe: Fever of 101 or Higher, Coldness, Increased Pain, Numbness or Tingling, Change in Color, Inability to urinate, Inability to have a bowel movement, Shortness of breath, Dizziness, Fainting spells, Swelling in the ankles, Chest pain, Prolonged hiccupping, Increased palpitations (irregular heartbeat) and Calf discomfort When: IN 2 WEEKS Meaningful Use Info Meaningful Use Meaningful Use Diagnoses (Choose all that apply): None applicable and VTE Ischemic Stroke Statin Dosing Therapy Reference: STATIN DOSE THERAPY REFERENCE: * Patients > 75 years receive moderate or high dose statin therapy. * Patients 75 years or YOUNGER should receive HIGH intensity statin dose unless contraindicated. You will be required to document reason for non-treatment if statin daily dose does not meet guidelines. HIGH DOSE STATIN THERAPY DAILY Atorvastatin > than or = to 40 mg Rosuvastatin > than or = to 20 mg Amlodipine + Atorvastatin > than or = to 2.5/40 mg Ezetimibe + Simvastatin 10/80 mg Simvastatin 80mg VTE Anticoag overlap given w/in hospital stay or rx'd at dc?: Yes Pt receive overlap for 5 days?: No Reason overlap not ordered, prescribed, or given for 5 days: Procedure Not Indicated Discharge Plan Admission Admit Date/Time: 02/13/24 13:28 Primary Reason for Your Visit: Portal vein thrombosis Attending Provider: Jarred Hebert Primary Care Provider: Ann Marie Dietrich Consulting Providers: Sunil Martins; Aaron Diaz Instructions Additional Instructions / Restrictions: Duration: Total of 6 months of Eliquis treatment. Will need to liver ultrasound with color duplex to see resolution of portal vein thrombosis after 6 months and follow-up with PCP. Discharge Orders/Prescriptions Prescriptions: New Eliquis DVT-PE Treat 30D Start 5 mg (74 tabs) tablets,dose pack 5 mg PO BID Qty: 74 0RF Rx Instructions: 10 mg twice daily for 1 week till 02/20/2024 then 5 mg twice daily to continue for total of 6 months Continued multivitamin [Daily Multi-Vitamin] Tablet 1 tab PO DAILY Discontinued L norgest/e.estradiol-e.estrad 0.15 mg-30 mcg (84)/10 mcg (7) tablets,dose pack,3 month 1 tab PO DAILY Referrals / Follow Up: Ann Marie Dietrich DO [Primary Care Provider] - Greg Johansen MD [Med Staff - Active Staff] - See Referral Note (Follow-up after 6 months after completion of Eliquis) Disposition Disposition (needs filled in before D/C Order can be placed): Home, Self Care Charges/Coding Visit Charges Inpatient E&M: 62539 Disch Hosp >30min
--- NOTE | 2024-02-14 10:10 | CASEMGMT ---
TC to [facility] Retail pharmacy, cost of eliquis is $281.94. Savings card applied and there is zero cost per Maria Luisa. RN CM into pt room, pt aware of cost of eliquis. Pt given information if this is not affordable to her after the first rx. Pt verbalizes understanding. Pt denies any further homegoing needs at this time.
[2024-02-14 10:16] VITALS: BP 122/73; PULSE 75; RESP 16; TEMP 36.9; O2SAT 98
[2024-02-15 14:10] LABS: Anti-Centromere B Ab <0.2 AI (0.0-0.9); Anti-Chromatin <0.2 AI (0.0-0.9); Anti-Jo <0.2 AI (0.0-0.9); Anti-Scleroderma-70 AB <0.2 AI (0.0-0.9); Anti-dsDNA Ab 2 IU/mL (0-9); RNP Ab <0.2 AI (0.0-0.9); SJOGREN'S Anti-SS-A test < 0.2 AI (0.0-0.9); SJOGREN'S Anti-SS-B test < 0.2 AI (0.0-0.9); Smith Ab <0.2 AI (0.0-0.9)
[2024-02-15 15:10] LABS: Angiotensin Convert Enzyme 21 U/L (14-82)
[2024-02-23 18:08] LABS: ACCA 18 units (0-90); ALCA 79 units (0-60); AMCA 42 units (0-100); Anti-Cardiolipin Ab, IgG, Qn < 9 GPL U/mL (0-14); Anti-Cardiolipin Ab, IgM, Qn 14 MPL U/mL (0-12); Anti-Thrombin 3 AG, Immunol 89 % (72-124); Antithrombin 3 Function 95 % (75-135); Beta-2-Glycoprotein I IgA <9 (0-25); Beta-2-Glycoprotein I IgG <9 (0-20); Beta-2-Glycoprotein I IgM <9 (0-32); Protein C Antigen 105 % (60-150); Protein C, Functional 168 % (73-180); gASCA 40 units (0-50)
[2024-02-28 10:09] LABS: Albumin 3.3 g/dL (2.9-4.4); Alpha-1-Globulins 0.4 g/dL (0.0-0.4); Cytoplasmic Ab (C-ANCA) <1:20 titer (Neg:<1:20); Deamidated Gliadin IgA 3 units (0-19); Deamidated Gliadin IgG 3 units (0-19); Endomysial Antibody IgA Negative (Negative); Gamma Globulin 1.3 g/dL (0.4-1.8); IgG, Quant 1183 mg/dL (586-1602); Immunoglobulin A 190 mg/dL (87-352); Immunoglobulin G, Subclass 1 374 mg/dL (248-810); Immunoglobulin G, Subclass 2 698 mg/dL (130-555); Immunoglobulin G, Subclass 3 44 mg/dL (15-102); Immunoglobulin G, Subclass 4 53 mg/dL (2-96); Immunoglobulin M 208 mg/dL (26-217); PROEL- TOTAL PROTEIN 7.1 g/dL (6.0-8.5); Perinuclear Ab (P-ANCA) <1:20 titer (Neg:<1:20); t-Transglutaminase IgA <2 U/mL (0-3)
== END 2024-02-14 10:47 | disposition home or self-care (01) ==
LOC: ED 10:03 → MS3 13:47
PROVIDERS: Internal Medicine Gastroenterology; Admitting Provider Hospitalist; Emergency Provider Emergency Medicine; PCP Internal Medicine; Visit Provider Internal Medicine
DX: I81 Portal vein thrombosis (principal); Z79.3 Long term (current) use of hormonal contraceptives; E66.9 Obesity, unspecified; Z68.30 Body mass index [BMI] 30.0-30.9, adult; N95.9 Unspecified menopausal and perimenopausal disorder
CPT/HCPCS: 36415; 74177; 80053; 81001; 81025; 81240; 81241; 81291; 82164; 82784; 82787; 83516; 83615; 83690; 84165; 85025; 85027; 85300; 85301; 85302; 85303; 85652; 86036; 86140; 86146; 86147; 86225; 86235; 86255; 86256; 86334; 86671; 93005; 96360; 96361; 96372; 99221; 99283; J7030; Q9967; A4216; G0378

== ENCOUNTER → 2024-04-23 | Outpatient (CLI) | payer OTHER, SELFPAY ==
--- NOTE | 2024-04-23 09:43 | MRI_ITS ---
EXAM: MR ABDOMEN AND PELVIS WITHOUT AND WITH INTRAVENOUS CONTRAST CLINICAL INDICATION: K50.90 - Crohn''s disease, unspecified, without complications TECHNIQUE: Multiplanar and multisequence MR images of the abdomen and pelvis without and with intravenous contrast. CONTRAST: 17 cc of Clariscan IV. COMPARISON: CT scan of the abdomen and pelvis 02/13/2024. FINDINGS: LOWER THORAX: Unremarkable. No pleural effusion. ABDOMEN: LIVER: The right portal vein and its proximal branches are much smaller than the left portal vein compatible with prior thrombosis of the right portal vein. GALLBLADDER AND BILE DUCTS: Unremarkable. No gallstones. No gallbladder distention or wall edema. No intra- or extrahepatic biliary ductal dilation. PANCREAS: Unremarkable. No focal cystic or solid mass. SPLEEN: Unremarkable. Normal size without focal cystic or solid mass. ADRENALS: Unremarkable. No nodules. KIDNEYS AND URETERS: Unremarkable. Normal renal size and position. No hydronephrosis. PELVIS: APPENDIX: No evidence of acute appendicitis. BLADDER: Unremarkable. OVARIES: Unremarkable as visualized. No mass or complex cyst. UTERUS/CERVIX: Unremarkable. No mass. Endometrial stripe is normal in thickness and appearance. ABDOMEN and PELVIS: INTRAPERITONEAL SPACE: Unremarkable. No ascites or other fluid collection. VASCULATURE: See above. LYMPH NODES: No enlarged lymph nodes. MRI/Enterography Abd/Pel IMPRESSION: 1. No significant bowel abnormality identified. 2. The right portal vein and its proximal branches are much smaller than the left portal vein compatible with prior thrombosis of the right portal vein. Electronically Signed: Mitul Watson MD at 22:14 [facility] ,
[2024-04-23 10:25] VITALS: BP 132/77; PULSE 84; RESP 16; O2SAT 98; BMI 30.5
[2024-04-23] MEDS: Glucagon 1 MG/ML Syringe IV (11:26)
[2024-04-23] MEDS: 0.9% Saline Lock 10 ML Syringe IV (11:26)
[2024-04-23 11:43] VITALS: BP 115/72; PULSE 93; RESP 16; O2SAT 98
== END | disposition home or self-care (01) ==
PROVIDERS: PCP Internal Medicine; Referring Provider Student in an Organized Health Care Education/Training Program; Visit Provider Student in an Organized Health Care Education/Training Program
DX: K50.90 Crohn's disease, unspecified, without complications (principal)
CPT/HCPCS: 74183; 96374; A9575; A4216; J1610

== ENCOUNTER 2024-07-09 05:38 | Day surgery (SDC) | payer OTHER, SELFPAY ==
[2024-07-09] VITALS (7 sets, daily range): BP systolic 104–127; BP diastolic 75–104; PULSE 84–106; RESP 16–18; TEMP 36.5–37.4; O2SAT 97–100; BMI 31.4
[2024-07-09 05:58] LABS: Internal QC Validated? YES +Cl - CLEAR BKGD; Pregnancy, Urine Negative Negative
--- NOTE | 2024-07-09 06:19 | PRE.ANES_ITS ---
ASA Classification* ASA Classification ASA Classification: 2 Assessment & Plan Anesthesia* Anesthesia Assessment Anesthesia Assessment: Discussed sedation and/or anesthesia options, risks, benefits, and alternatives with patient/parents/legal guardian/POA. Questions invited. The patient/parents/legal guardian/POA seems to understand and agrees to proceed with anesthesia plan. Reviewed the physical assessment, medical history, allergy history and patient home medications list prior to surgery/procedure/anesthetic and documented any changes. Performed airway and anesthesia risk assessments. Anesthesia Type Anesthesia Type: MAC History Source History Obtained from:: Patient and Chart Anesthesia Focused Assessment* Temperature: 99.4 F Pulse Rate: 84 Blood Pressure: 119/75 Respiratory Rate: 16 Pulse Ox: 100 Oxygen Delivery Method: Room Air Airway Assessment Mouth opens: 2 cm Mallampati Score: I Teeth Condition: Intact Neck Range of motion (ROM): Full ROM Focused Labs Anesthesia Preop lab: CBC WBC 9.8 K/mm3 (4.4-11.0) 02/14/24 05:52 02/14/24 RBC 4.65 M/mm3 (4.2-5.4) 02/14/24 05:52 02/14/24 Hgb 13.0 g/dL (12.0-15.0) 02/14/24 05:52 02/14/24 Hct 40.6 % (37-47) 02/14/24 05:52 02/14/24 Plt Count 299 K/mm3 (150-450) 02/14/24 05:52 02/14/24 CHEMISTRY Potassium 3.4 mmol/L (3.5-5.1) L 02/14/24 05:52 02/14/24 Sodium 136 mmol/L (136-145) 02/14/24 05:52 02/14/24 BUN 6 mg/dL (7-18) L 02/14/24 05:52 02/14/24 Creatinine 0.84 mg/dL (0.55-1.02) 02/14/24 05:52 02/14/24 Glucose 154 mg/dL (74-106) H 02/14/24 05:52 02/14/24 COAG Urine Test Negative Negative 07/09/24 05:45 07/09/24 Pre-Assessment Diagnosis/Proposed Procedure Planned Operative Procedure(s): COLONOSCOPY/EGD Anesthesia History Anesthesia History - v/stol landing signal officer: Anesthesia History - v/stol landing signal officer Hx Hospitalization Yes: 02/13/24 DVT 07/04/24 11:07 Any Problems With Anesthesia No 07/04/24 11:07 Cholinesterase deficiency No 07/04/24 11:07 You/Your Family Experience No 07/04/24 11:07 fever (hyperthermia) with Relationship Recent Exposure to Contagious No 07/09/24 06:04 Disease Does patient have nerve No 07/04/24 11:07 stimulator Patient instructed to have device shut off --Does patient have Pacemaker No 07/09/24 06:04 or ICD? When Was Last Pacemaker Check QUESTION #4 FULL TEXT: You/Your Family Experience fever (hyperthermia) with Anesthesia Last Oral Intake Last Oral intake: Last Oral Intake NPO since 03:00 07/09/24 06:04 Meds taken in AM with sips of No 07/09/24 06:04 water? Meds patient instructed to take am of surgery PONV PONV - v/stol landing signal officer: PONV - v/stol landing signal officer Female Yes 07/04/24 11:07 HX of Motion Sickness No 07/04/24 11:07 HX of N/V After Surgery No 07/04/24 11:07 Non-Smoker Yes 07/04/24 11:07 Duration of Surgery greater No 07/04/24 11:07 than 60 minutes Number of Risk Factors 2 07/04/24 11:07 PONV Score Moderate Risk 07/04/24 11:07 Height & Weight Height & Weight: Anesthesia: Height & Weight Height 5 ft 7 in 07/09/24 06:04 Weight: 91 kg 07/09/24 06:04 Body Mass Index (BMI) 31.4 07/09/24 06:04 Respiratory Assessment Respiratory Assessment - v/stol landing signal officer: Respiratory Tract Infection Hx - v/stol landing signal officer Hx Respiratory Tract Infection No 07/04/24 11:07 STOP Sleep Apnea STOP Sleep Apnea - v/stol landing signal officer: STOP Sleep Apnea - v/stol landing signal officer Hx Hypertension No 07/04/24 11:07 Hx Sleep Apnea No 07/04/24 11:07 CPAP BIPAP Do you snore loudly (louder No 07/04/24 11:07 than talking or can be heard Do you often feel tired/ No 07/04/24 11:07 fatigued/ sleepy during daytime? Has anyone observed you stop No 07/04/24 11:07 breathing during sleep? STOP Results Negative 07/04/24 11:07 QUESTION #5 FULL TEXT : Do you snore loudly (louder than talking or can be heard through closed doors)? 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 Specify any problems Hx of Preganancy in last 3 No 07/04/24 11:07 Months Nurse Filling Out Transfusion VCHRISTIN 07/04/24 11:07 & Questions: Date: 07/04/24 07/04/24 11:07 Time: 11:08 07/04/24 11:07 Patient unable to answer at this time (ie. confused, unrespo /Reproduction History /Reproductive History - v/stol landing signal officer: /Reproductive Hx- v/stol landing signal officer Hx Now No 07/04/24 11:07 Gestational Age (in weeks): EDC: Hx Hx Para Hx Section SAB No 07/04/24 11:07 [facility] Medical History Wears dentures Wears glasses Alcohol use Back pain Menstrual irregularity Encounter to establish care History of DVT (deep vein thrombosis) Anti-phospholipid syndrome Perimenopausal High cholesterol Breast lump History of blood clots Back problem Non-smoker Portal vein thrombosis Home Medications ?Medication ?Instructions ?Recorded ?Last Taken ?Type apixaban 5 mg tablet 5 mg PO BID 1 month #60 tabs 03/08/24 07/05/24 Rx calcium 500 mg-vitamin D3 100 1 tab PO DAILY 07/04/24 Unknown History unit-vitamin K 40 mcg chewable tablet (Calcium for Women) multivitamin (Daily Multi-Vitamin 1 tab PO DAILY 07/04 Unknown History tablet) Allergy/AdvReac Type Severity Reaction Status Date / Time No Known Allergies Allergy Verified 07/09/24 05:59 Family History Grandmother Colon cancer Grandfather Cancer stomach CVA (cerebral vascular accident) Father Cancer brain Hypertension High cholesterol Aunt Cancer brain Grandmother CVA (cerebral vascular accident) Mother Hypertension High cholesterol Surgical History (Updated 07/04/24 @ 11:07 by Lucrecia Uriostegui) H/O dilation and curettage Social History Smoking Status: Never smoker alcohol intake: current alcohol intake frequency: holidays/special occasions only substance use type: does not use frequency: 1-2 times per week Review of Systems (Anesthesia) ROS Narrative System reviewed and no additional complaints, except as documented. Physical Exam Const alert and oriented x3 Orientation / Consciousness: awake HEENT dentition normal Neck full ROM Resp normal respiratory effort
--- NOTE | 2024-07-09 06:30 | IMM_PTH ---
PATIENT: HUSAM BOWLING LOC: EN U#:[id number] AGE/SX: 39/F ROOM: RE07/09/[address]: Dr. Sunil Martins DO : 1985 BED: DIS: 07/09/2024 SPEC #: [id number] RECD: 07/09/24 10:08 STATUS: MAIDA FINK #: [id number] ZAYNAB: 07/09/24 06:[address]: Sunil Martins DEPT: IMMUNOHISTOCHEMISTRY RECD BY: Adrien Rivero ENTERED: 07/09/24 10:09 SP TYPE: IMMUNO OTHR DR: Dr. Alberto Hines MD Tissues: B - Gastric mucous membrane Procedures: H Pylori (initial) PHYSICIAN & INSTITUTION [place] [address] SPECIMEN INFORMATION: Tissue Source: B- Gastric body biopsy Clinical Info: Crohn's disease, antiphospholipid antibody positive, portal vein thrombosis Specimen Number: [id number] CPT code: 93608 METHODOLOGY: Deparaffinized sections of prefer/formalin-fixed tissue or PAP/DQ stained slides are incubated with monoclonal/polyclonal antibodies/oligonucleotide probes. Localization is made via biotin free immunoperoxidase method. Appropriate controls are performed and reacted as expected. Results on target cell population are indicated in the following table: RESULTS: ANTIBODY / CLONE RESULT Block B H Pylori (polyclonal) negative These tests were developed and their performance characteristics determined by [facility]. They may not have been cleared or approved by the U.S. Food and Drug Administration. The FDA has determined that such clearance or approval is not necessary. The above immunohistochemical/dualISH markers are ordered and reviewed by the Pathologist. INTERPRETATION: B. Gastric body, biopsy: Negative for Helicobacter pylori organisms. 07/10/2024
--- NOTE | 2024-07-09 06:30 | COLBX_PTH ---
PATIENT: HUSAM BOWLING LOC: EN U#:[id number] AGE/SX: 39/F ROOM: RE07/09/[address]: Dr. Sunil Martins DO : 1985 BED: DIS: 07/09/2024 SPEC #: [id number] RECD: 07/09/24 09:31 STATUS: MAIDA FINK #: [id number] ZAYNAB: 07/09/24 06:[address]: Sunil Martins DEPT: SURGICAL PATHOLOGY RECD BY: Paula Yip ENTERED: 07/09/24 10:12 SP TYPE: COLON BX OTHR DR: Dr. Alberto Hines MD Tissues: A - Duodenum, NOS B - Gastric mucous membrane C - Ileum, NOS Procedures: Surgery Specimen Level IV HEADER OPERATION: Colonoscopy, EGD biopsy PRE-OP DIAGNOSIS: Crohn's disease, antiphospholipid antibody positive, portal vein thrombosis TISSUE SUBMITTED: A- Duodenum biopsy, B- Gastric body biopsy, C- Terminal ileum biopsy MICROSCOPIC DIAGNOSIS A. Duodenum, biopsy: Fragments of duodenal mucosa, no pathologic diagnosis. B. Gastric body, biopsy: Mild gastritis. See microscopic description and comment. C. Terminal ileum, biopsy: Fragments of small intestinal mucosa, no pathologic diagnosis. See comment. SONIA 07/10/2024 COMMENT B. The results of immunohistochemistry for Helicobacter pylori will be reported separately ([id number]). C. Prominent lymphoid aggregates are noted. MICROSCOPIC DESCRIPTION Slides are reviewed. B. The specimen shows fragments of gastric mucosa with chronic inflammatory cell infiltrates in the lamina propria consisting of lymphocytes and plasma cells, consistent with mild chronic gastritis. GROSS DESCRIPTION A. Received in fixative is one container labeled with the patient's name and designated Duodenum biopsy. The specimen consists of two irregular fragments of light rodriguez soft tissue that in aggregate measure 0.8 x 0.3 x 0.1 cm. The specimen is totally submitted in one cassette. B. Received in fixative is one container labeled with the patient's name and designated Gastric body biopsy. The specimen consists of one irregular fragment of light rodriguez soft tissue that measures 0.7 x 0.3 x 0.1 cm. The specimen is totally submitted in one cassette. C. Received in fixative is one container labeled with the patient's name and designated Terminal ileum biopsy. The specimen consists of multiple irregular fragments of light rodriguez soft tissue that in aggregate measure 1.3 x 0.5 x 0.1 cm. The specimen is totally submitted in one cassette. 07/09/2024 TC:3 CPT:46407g7
--- NOTE | 2024-07-09 06:38 | HP.PCM_ITS ---
HPI - General General Date of Admission: 07/09/24 Date of Service: 07/09/24 Chief Complaint: Crohns and abdominal pain HPI Narrative HUSAM BOWLING, is a 39 F who presents for the evaluation of worsening abdominal pain and surveillance of Crohn's disease. She originally presented to [facility] ED on 02/13/2024 with 3- day history of right upper quadrant abdominal pain. CT abdomen pelvis was positive for a portal vein thrombosis. Scan showed an intraluminal thrombus in the posterior aspect of the right main portal venous bifurcation extending to the right posterior hepatic lobe. There otherwise was no liver disease or gallbladder disease noted on the scan and no other concerning findings. Patient started combo control pills about 3 months ago. She was given a dose of subcu Lovenox in the ED and given her ongoing pain, hospitalist was contacted for admission. I saw the patient at bedside in the ED, was present. She has not been eating or drinking as much over the past few days due to the pain. Patient has no prior history of any blood clots. She has no significant family history of blood clots. She is otherwise healthy and not on any other medications. She is not a smoker. She has no other acute concerns at this time. [facility] hospitalization 02.13.24 - 02.14.24 abd pain I got to see on consultation for new onset portal vein thrombosis. In her workup she was discovered to have multiple antibodies for inflammatory bowel disease including positive p-ANCA. [facility] Medical History Wears dentures Wears glasses Alcohol use Back pain Menstrual irregularity Encounter to establish care History of DVT (deep vein thrombosis) Anti-phospholipid syndrome Perimenopausal High cholesterol Breast lump History of blood clots Back problem Non-smoker Portal vein thrombosis Home Medications ?Medication ?Instructions ?Recorded ?Last Taken ?Type apixaban 5 mg tablet 5 mg PO BID 1 month #60 tabs 03/08/24 07/05/24 Rx calcium 500 mg-vitamin D3 100 1 tab PO DAILY 07/04/24 Unknown History unit-vitamin K 40 mcg chewable tablet (Calcium for Women) multivitamin (Daily Multi-Vitamin 1 tab PO DAILY 07/04 Unknown History tablet) Allergy/AdvReac Type Severity Reaction Status Date / Time No Known Allergies Allergy Verified 07/09/24 05:59 Family History Grandmother Colon cancer Grandfather Cancer stomach CVA (cerebral vascular accident) Father Cancer brain Hypertension High cholesterol Aunt Cancer brain Grandmother CVA (cerebral vascular accident) Mother Hypertension High cholesterol Surgical History H/O dilation and curettage Social History Smoking Status: Never smoker alcohol intake: current alcohol intake frequency: holidays/special occasions on ly substance use type: does not use frequency: 1-2 times per week ROS Constitutional Constitutional: Denies fatigue, fever(s), poor appetite, weight gain or weight loss Gastrointestinal Gastrointestinal: Denies belching, bloating, change in bowel habits, change in stool character, chewing difficulty, coffee ground emesis, constipation, cramping, diarrhea, dyspepsia, dysphagia, early satiety, excessive flatus, fecal incontinence, heartburn, hematemesis, hematochezia, hemorrhoids, loose stools, melena, nausea, odynophagia, rectal bleeding, tenesmus, vomiting or weight changes Vital Signs Vital Signs Vital Signs: 07/09/24 06:04 07/09/24 06:04 07/09/24 06:21 Temperature 99.4 F H 99.4 F H Temperature Source Temporal Pulse Rate 84 84 Respiratory Rate 16 16 Respiratory Pattern Normal Blood Pressure 119/75 119/75 Blood Pressure Mean 89 Blood Pressure Source Monitor Blood Pressure Position Semi-Fowlers Blood Pressure Location Left Arm Pulse Ox 100 100 Oxygen Delivery Method Room Air Room Air Weight Weight: 200 lb 9.93 oz Body Mass Index (BMI) 31.4 Physical Exam Const alert, oriented x3, no apparent distress and healthy appearing General Appearance: cooperative GI normal to inspection, nondistended, normoactive bowel sounds, soft to palpation, non-tender and non-distended Percussion: normal to percussion Rectal Exam: deferred Results Lab / Micro Data Labs: Laboratory Results - last 24 hr 07/09/24 05:45: Urine Test Negative Assessment & Plan Assessment/Plan (1) Crohn's disease: (2) Antiphospholipid antibody positive: (3) Abdominal pain: PLAN: Assessment and Plan Assessment and Plan (1) Crohn's disease: Status: Acute (2) Antiphospholipid antibody positive: Status: Acute (3) Portal vein thrombosis: Status: Acute Plan: 38-year-old female was admitted with 3 days of right upper quadrant abdominal pain progressively worsening. CT abdomen pelvis done which showed portal vein thrombosis. It is reported as intraluminal thrombus in posterior aspect of right main portal venous bifurcation extending to the right posterior hepatic lobe. No other liver disease or gallbladder disease. Patient on combination hormone replacement treatment for perimenopause symptoms 3 months ago. Patient is strictly told she is not candidate for hormonal replacement therapy. Hormone replacement therapy is high risk for thromboembolic disease therefore she has reversible/provoked cause for PCT. She denies family or hereditary thromboembolic disease. Patient was started on Lovenox 1 mg/kg body weight. This was changed to apixaban on DVT dose, 10 mg twice daily for 1 week and then 5 mg twice daily to continue for 6 months. She will need liver ultrasound with color duplex to see degeneration of portal vein thrombosis. Follow-up with automatic furnace operator Dr. Johansen after completion of apixaban. She we will also need to complete workup for inflammatory bowel disease as a possible risk factor for her portal vein thrombosis. She is scheduled to get MR enterography and we will perform an upper or lower endoscopy and possible capsule endoscopy.
--- NOTE | 2024-07-09 07:16 | OP.EGD_ITS ---
Patient Name: Asia No Procedure Date: 07/09/2024 6:16 AM Date of : 1985 Age: 39 Procedure: Upper GI endoscopy Indications: Epigastric abdominal pain, Abdominal pain in the right upper quadrant Providers: Sunil Martins DO Referring MD: Alberto Hines MD Medicines: Monitored Anesthesia Care Patient Profile: This is a 39 year old female. Refer to note in patient chart for documentation of history and physical. Patient has symptoms of acute right upper quadrant abdominal pain and acute epigastric abdominal pain. Complications: No immediate complications. Procedure: Pre-Anesthesia Assessment: - Prior to the procedure, a History and Physical was performed, and patient medications and allergies were reviewed. The patient is competent. The risks and benefits of the procedure and the sedation options and risks were discussed with the patient. All questions were answered and informed consent was obtained. Patient identification and proposed procedure were verified by the physician in the pre-procedure area. Mental Status Examination: alert and oriented. Airway Examination: normal oropharyngeal airway and neck mobility. Respiratory Examination: clear to auscultation. CV Examination: normal. Prophylactic Antibiotics: The patient does not require prophylactic antibiotics. Prior Anticoagulants: The patient has taken no anticoagulant or antiplatelet agents except for NSAID medication. ASA Grade Assessment: II - A patient with mild systemic disease. After reviewing the risks and benefits, the patient was deemed in satisfactory condition to undergo the procedure. The anesthesia plan was to use monitored anesthesia care (MAC). Immediately prior to administration of medications, the patient was re-assessed for adequacy to receive sedatives. The heart rate, respiratory rate, oxygen saturations, blood pressure, adequacy of pulmonary ventilation, and response to care were monitored throughout the procedure. The physical status of the patient was re-assessed after the procedure. After obtaining informed consent, the endoscope was passed under direct vision. Throughout the procedure, the patient's blood pressure, pulse, and oxygen saturations were monitored continuously. The Colonoscope was introduced through the mouth, and advanced to the second part of duodenum. The upper GI endoscopy was accomplished without difficulty. The patient tolerated the procedure well. Scope In: 6:52:20 AM Scope Out: 6:55:41 AM Total Procedure Duration Time 0 hours 3 minutes 21 seconds Findings: The examined esophagus was normal. A small hiatal hernia was present. The entire examined stomach was normal. Patchy mild inflammation characterized by friability was found in the duodenal bulb, in the first portion of the duodenum and in the second portion of the duodenum. Biopsies were taken with a cold forceps for histology. Verification of patient identification for the specimen was done. Estimated blood loss was minimal. Impression: - Normal esophagus. - Small hiatal hernia. - Normal stomach. - Duodenitis. Biopsied. Recommendation: - Discharge patient to home. - Resume previous diet. - Continue present medications. - Await pathology results. Procedure Code(s): --- Professional --- 14907, Esophagogastroduodenoscopy, flexible, transoral; with biopsy, single or multiple CPT copyright 2021 [employer]. All rights reserved. The codes documented in this report are preliminary and upon otologist review may be revised to meet current compliance requirements. Sunil Martins DO 07/09/2024 7:14:57 AM This report has been signed electronically. Number of Addenda: 0 Note Initiated On: 07/09/2024 6:16 AM
--- NOTE | 2024-07-09 07:16 | OP.CCLET_ITS ---
07/09/2024 Alberto Hines MD [address] [place] [address] [place] [address] Re : Upper GI endoscopy procedure for Asia Oneal Dear Dr. Hines This procedure was performed on Tuesday, July 09, 2024. My impressions and recommendations are as follows: Impressions : - Normal esophagus. - Small hiatal hernia. - Normal stomach. - Duodenitis. Biopsied. Recommendations : - Discharge patient to home. - Resume previous diet. - Continue present medications. - Await pathology results. My findings are described in the full procedure note, which is enclosed. If I can be of further assistance, please feel free to contact me at . Sincerely, Sunil Martins, 07/09/2024 7:14:57 AM This report has been signed electronically.
--- NOTE | 2024-07-09 07:18 | OP.CCLET_ITS ---
07/09/2024 Alberto Hines MD [address] [place] [address] [place] [address] Re : Colonoscopy procedure for Asia Oneal Dear Dr. Hines This procedure was performed on Tuesday, July 09, 2024. My impressions and recommendations are as follows: Impressions : - The entire examined colon is normal. - Congested mucosa in the terminal ileum. - The examination was otherwise normal on direct and retroflexion views. - Stool in the ascending colon. - Several biopsies were obtained in the terminal ileum. Recommendations : - Discharge patient to home. - Resume previous diet. - Continue present medications. - Await pathology results. - Repeat colonoscopy in 10 years for screening purposes. My findings are described in the full procedure note, which is enclosed. If I can be of further assistance, please feel free to contact me at . Sincerely, Sunil Friend, 07/09/2024 7:17:58 AM This report has been signed electronically.
--- NOTE | 2024-07-09 07:18 | OP.COLON_ITS ---
Patient Name: Asia No Procedure Date: 07/09/2024 6:56 AM Date of : 1985 Age: 39 Procedure: Colonoscopy Indications: Suspected Crohn's disease of the small bowel Providers: Sunil Martins DO Referring MD: Alberto Hines MD Medicines: Monitored Anesthesia Care Patient Profile: This is a 39 year old female. Refer to note in patient chart for documentation of history and physical. Patient has symptoms of acute right upper quadrant abdominal pain and acute epigastric abdominal pain. Last Colonoscopy: none. The patient's first colonoscopy is today. Complications: No immediate complications. Procedure: Pre-Anesthesia Assessment: - Prior to the procedure, a History and Physical was performed, and patient medications and allergies were reviewed. The patient is competent. The risks and benefits of the procedure and the sedation options and risks were discussed with the patient. All questions were answered and informed consent was obtained. Patient identification and proposed procedure were verified by the physician in the pre-procedure area. Mental Status Examination: alert and oriented. Airway Examination: normal oropharyngeal airway and neck mobility. Respiratory Examination: clear to auscultation. CV Examination: normal. Prophylactic Antibiotics: The patient does not require prophylactic antibiotics. Prior Anticoagulants: The patient has taken no anticoagulant or antiplatelet agents except for NSAID medication. ASA Grade Assessment: II - A patient with mild systemic disease. After reviewing the risks and benefits, the patient was deemed in satisfactory condition to undergo the procedure. The anesthesia plan was to use monitored anesthesia care (MAC). Immediately prior to administration of medications, the patient was re-assessed for adequacy to receive sedatives. The heart rate, respiratory rate, oxygen saturations, blood pressure, adequacy of pulmonary ventilation, and response to care were monitored throughout the procedure. The physical status of the patient was re-assessed after the procedure. After I obtained informed consent, the scope was passed under direct vision. Throughout the procedure, the patient's blood pressure, pulse, and oxygen saturations were monitored continuously. The Colonoscope was introduced through the anus and advanced to the terminal ileum. The colonoscopy was performed without difficulty. The patient tolerated the procedure well. The quality of the bowel preparation was adequate. The terminal ileum, ileocecal valve, appendiceal orifice, and rectum were photographed. Scope In: 6:57:35 AM Scope Withdrawal Time 0 hours 7 minutes 2 seconds Scope Out: 7:07:08 AM Total Procedure Duration Time 0 hours 9 minutes 33 seconds Findings: The perianal and digital rectal examinations were normal. The colon (entire examined portion) appeared normal. A patchy area of the terminal ileum was congested. Several biopsies were obtained with cold forceps for histology in a targeted manner in the terminal ileum. Verification of patient identification for the specimen was done. Estimated blood loss was minimal. The exam was otherwise without abnormality on direct and retroflexion views. Stool was found in the ascending colon. Impression: - The entire examined colon is normal. - Congested mucosa in the terminal ileum. - The examination was otherwise normal on direct and retroflexion views. - Stool in the ascending colon. - Several biopsies were obtained in the terminal ileum. Recommendation: - Discharge patient to home. - Resume previous diet. - Continue present medications. - Await pathology results. - Repeat colonoscopy in 10 years for screening purposes. Procedure Code(s): --- Professional --- 23097, Colonoscopy, flexible; with biopsy, single or multiple CPT copyright 2021 [employer]. All rights reserved. The codes documented in this report are preliminary and upon reserve officer review may be revised to meet current compliance requirements. Sunil Martins DO 07/09/2024 7:17:58 AM This report has been signed electronically. Number of Addenda: 0 Note Initiated On: 07/09/2024 6:56 AM
--- NOTE | 2024-07-09 07:23 | PCM.POST.ANE ---
Anesthesia: Postop Eval I Current Vital Signs Temperature: 97.7 F Pulse Rate: 97 Blood Pressure: 127/84 Respiratory Rate: 16 Pulse Ox: 99 Oxygen Delivery Method: Room Air Assessment Airway patent: Yes Spontaneous unlabored respirations: Yes Mental status: Awake nausea: No Vomiting: No Anesthesia Complication: No Fluid Hydration Crystalloid volume administer (ml): 60 Total IV fluid infused: 60 Progress Note Anesthesia document: Postop Eval 1 completed: Yes
--- NOTE | 2024-07-09 08:19 | PCM.POSTANE2 ---
Anesthesia Postop Eval I Sum Postop Eval Completion status Anesthesia document: Postop Eval 1 completed: Yes Anesthesia Postop Eval I Summary Anesthesia Postop Eval I Summary: Anesthesia Postop Eval I: Assessment Summary Airway patent Yes 07/09/24 07:24 [email or web address] Spontaneous unlabored Yes 07/09/24 07:24 [email or web address] respirations Mental status Awake 07/09/24 07:24 [email or web address] nausea No 07/09/24 07:24 [email or web address] Vomiting No 07/09/24 07:24 [email or web address] Anesthesia Postop Eval I: Fluid Summary Crystalloid volume administer 60 07/09/24 07:24 [email or web address] (ml) Colloids volume administered ( ml) Blood Product volume administered (ml) Total IV fluid infused 60 07/09/24 07:24 [email or web address] Anesthesia Postop Eval I: Summary Notes Anesthesia Complication No 07/09/24 07:24 [email or web address] Anesthesia Complication Comment: Post-operative progress note Anesthesia: Postop Eval II Evaluation Mental status: Awake Pain Level: 2 nausea: No Vomiting: No Complications Anesthesia Complication: No
== END 2024-07-09 08:08 | disposition home or self-care (01) ==
LOC: EN 05:39 → AC 05:40
PROVIDERS: Anesthesiology; PCP Internal Medicine; Referring Provider Internal Medicine; Visit Provider Internal Medicine Gastroenterology
PROC: 0DJD8ZZ Inspection of Lower Intestinal Tract, Via Natural or Artificial Opening Endoscopic (ICD-10-PCS; CPT 45378; principal; 2024-07-09 06:25)
DX: K29.50 Unspecified chronic gastritis without bleeding (principal); K29.80 Duodenitis without bleeding; K44.9 Diaphragmatic hernia without obstruction or gangrene; I81 Portal vein thrombosis; Z79.01 Long term (current) use of anticoagulants
CPT/HCPCS: 43239; 45380; 81025; 88305; 88342; A4216; J2405

== ENCOUNTER → 2024-09-24 | Outpatient (CLI) | payer OTHER, SELFPAY ==
[2024-09-24 12:34] LABS: International Normalized Ratio 0.9; Prothrombin Time (Protime)PT. 12.7 SECONDS (11.7-14.9)
[2024-09-24 12:38] LABS: Absolute Lymphocyte Count 1.71 X10^3/uL (0.83-4.51); Absolute Neutrophil Count 3.2 X10^3/uL (2.0-7.7); Basophil# 0.04 X10^3/uL; Basophil% 0.7 % (0-1); Eosinophil# 0.15 X10^3/uL; Eosinophils% 2.7 % (0-5); Hematocrit 39.8 % (37-47); Hemoglobin 12.7 g/dL (12.0-15.0); Lymphocyte # 1.71 X10^3/ul (0.83-4.51); Lymphocyte % 31.1 % (19-41); Mean Corp Hgb Conc 31.9 g/dL (32-36); Mean Corpuscular Hgb 27.5 pg (27.0-32.0); Mean Corpuscular Volume 86.1 fL (81-99); Mean Platelet Vol. 10.2 fl (6.2-12.0); Monocyte# 0.34 X10^3/uL; Monocyte% 6.2 % (0-10); NRBC Flagged by Analyzer 0 % (0-5); Neutrophil # 3.23 X10^3/uL (2.7-7.7); Neutrophil % 58.9 % (47-70); Platelet Count 340 K/mm3 (150-450); RBC Distribution Width CV 13.5 % (11.6-14.6); RBC Distribution Width SD 42.1 fl (35.1-43.9); Red Blood Count 4.62 M/mm3 (4.2-5.4); White Blood Count 5.5 K/mm3 (4.4-11.0)
[2024-09-24 12:43] LABS: ALB/GLOB Ratio 1.3 RATIO (0.9-2.4); AST(SGOT) 23 U/L (<=31); Alanine Aminotransfer ALT/SGPT 17 U/L (<=34); Albumin, Serum 4.1 g/dL (3.5-5.0); Alkaline Phosphatase 45 U/L (35-104); Anion Gap 9 (5-15); BUN 9 mg/dL (4-19); BUN/Creat Ratio 11.4 RATIO (10-20); Calcium,Total 9.3 mg/dL (7.6-11.0); Carbon Dioxide 22.5 mmol/L (21.0-32.0); Chloride 107 mmol/L (98-108); Cholesterol 183 mg/dL (<=200); EST Glomerular Filtration Rate 95 (>60); Globulin 3.2 g/dL (2.2-4.2); Glucose 98 mg/dL (70-99); High Density Lipoprotein 52 mg/dL; Low Density Lipoprotein Calc. 112 mg/dL; Potassium 4.1 mmol/L (3.3-5.1); Protein, Total 7.2 g/dL (5.9-8.4); Sodium Level 139 mmol/L (133-145); Total Bilirubin 0.47 mg/dL (0.00-1.30); Triglycerides 99 mg/dL; Very Low Density Lipoprotein 20 mg/dL (5-40); cholesterol:hdl ratio screen 3.54
[2024-09-24 12:47] LABS: CRP < 3.00 mg/L (0.0-3.0)
[2024-09-24 12:56] LABS: Hemoglobin A1c 5.7 % (<=5.6)
[2024-09-26 04:07] LABS: Anti-Cardiolipin Ab, IgA, Qn < 9 APL U/mL (0-11); Anti-Cardiolipin Ab, IgG, Qn < 9 GPL U/mL (0-14); Anti-Cardiolipin Ab, IgM, Qn 13 MPL U/mL (0-12); Dilute Prothrombin Time (dPT) 40.4 sec (0.0-47.6); Dilute Russell Viper Venom 46.7 sec (0.0-47.0); Interpretation Comment: (.); PTT-LA 32.5 sec (0.0-43.5); Thrombin Time 19.8 sec (0.0-23.0); dPT Confirm Ratio 1.01 Ratio (0.00-1.34)
== END | disposition home or self-care (01) ==
LOC: BIMLAB 08:57
PROVIDERS: PCP Internal Medicine; Referring Provider Internal Medicine; Visit Provider Internal Medicine
DX: R10.9 Unspecified abdominal pain (principal); R76.0 Raised antibody titer; I81 Portal vein thrombosis; Z86.79 Personal history of other diseases of the circulatory system
CPT/HCPCS: 36415; 80053; 80061; 83036; 85025; 85610; 86140; 86147